=== PATIENT | female | born 1955 | race Caucasian/White ===

== ENCOUNTER 2021-05-05 06:01 | Day surgery (SDC) | payer BC ==
[~2021-05-05] VITALS: Ht 172.7 cm; Wt 40.1 kg
[~2021-05-05 06:01] MED LIST: ALBU2.5V5 NEB; AMLO2.5T5 PO; CHOL5000 PO; DICL20GE TP; FERR325T72 PO; IPRA3AMP29 NEB; IV RINGERS,LACTATED 1000ML 1,000 ML IV SCH; MORPHINE SULFATE 2 MG/ML INJ. IVP PRN; OXYC5CAP PO; OXYC5TAB4 PO; POLY17PO29 PO; PROCHLORPERAZINE 10 MG/2 ML VIAL. IVP PRN; TETR15DR73 OU; THIA100T22 PO; UMEC62.5 IH; ceFAZolin SODIUM IV Push 1 GM VIAL. IVP PRN; fentaNYL PF VIAL 100 MCG/2 ML VIAL IVP PRN
[2021-05-05 06:43] VITALS: BP 130/72
[2021-05-05] MEDS ORDERED: PROPOFOL 10 MG/ML (20ML) VIAL. IV ONE (06:55)
[2021-05-05] MEDS ORDERED: ROCURONIUM 100 MG/10 ML VIAL. ONE (06:55)
[2021-05-05] MEDS ORDERED: GLYCOPYRROLATE 1 MG/5 ML VIAL. ONE (06:55)
[2021-05-05] MEDS ORDERED: DEXAMETHASONE SOD PHOS 4 MG/ML VIAL ONE (06:57)
[2021-05-05] MEDS ORDERED: SUCCINYLCHOLINE 200 MG/10 ML VIAL. ONE (06:57)
[2021-05-05] MEDS ORDERED: ONDANSETRON PF 4 MG/2 ML VIAL. ONE (06:57)
[2021-05-05] MEDS ORDERED: fentaNYL PF VIAL 100 MCG/2 ML VIAL ONE ×3 (06:58→09:47)
[2021-05-05 06:59] LABS: HEMATOCRIT 26.8 % (36.0-47.0); HEMOGLOBIN 8.8 g/dL (12.0-15.5)
[2021-05-05] MEDS ORDERED: CLINDAMYCIN 900MG PREMIX 50 ML IV ONE (07:21)
--- NOTE | 2021-05-05 07:24 | SNU/HH DC ---
DISCHARGE ORDERS DISCHARGE INFORMATION: DISCHARGE DATE: May 05, 2021 FINAL DIAGNOSIS Left olecranon fracture CONDITION ON DISCHARGE: Stable CODE STATUS: Code Status: Full HALFWAY: SNF STAY <30 DAYS: Yes HOSPICE: HOSPICE: No HOSPICE EVAL & TREAT: No LTAC: ADMIT TO LTAC: No POST DISCHARGE ORDERS: ACTIVITY ORDERS: Resume previous activity, Other, see below WEIGHT BEARING STATUS: As tolerated, Touch down weight bearing BATHING ORDERS: Shower-keep dressing dry DIET AFTER DISCHARGE: Regular WOUND/INCISION CARE: Ice to area for comfort, Keep wound/cast CDI OTHER WOUND INSTRUCTIONS: Okay to remove splint on left arm on 05/12/2021 OTHER ORDERS: Okay to use left upper extremity for light ADLs CHECKS AFTER DISCHARGE: CHECKS AFTER DISCHARGE: Check blood press - daily, Check your Temp as needed FOLLOW-UP: PHYSICIAN FOLLOW-UP: [place] in 2 wks TREATMENT/EQUIPMENT ORDERS: ADAPTIVE EQUIPMENT NEEDED: None, [facility] For: Evalulation/Treatment Occupational Therapy For: Evaluation/Treatment DISCHARGE MEDICATIONS: Home Meds Active Scripts Thiamine Mononitrate (VITAMIN B-1) 100 Mg Tablet, 100 MG PO DAILY for deficiency for 60 Days, #60 TAB Prov:MARCEL SOW MD 04/27/21 Oxycodone Hcl (OXYCODONE HCL IMMED.RELEASE ) 5 Mg Tablet, 10 MG PO PRN Q4HRS PRN for MILD PAIN, 1ST CHOICE for 30 Days, #30 TAB Prov:MARCEL SOW MD 04/27/21 Ferrous Sulfate (FEOSOL) 325 Mg Tablet, 325 MG PO DAILYWBKFT for glendy for 60 Days, #60 TAB Prov:MARCEL SOW MD 04/27/21 Reported Medications Amlodipine Besylate (AMLODIPINE BESYLATE) 2.5 Mg Tablet, 2.5 MG PO DAILY for BP CONTROL, TAB 05/04/21 Tetrahydrozoline Hcl (EYE DROPS) 15 Ml Drops, 1 DROP OU PRN DAILY PRN for DRY EYE, DROP 05/04/21 Diclofenac Sodium (Voltaren Arthritis Pain) 20 Gm Gel..gram., 20 GM TP PRN TID PRN for KNEE PAIN, EACH 05/04/21 Cholecalciferol (Vitamin D3) (Vitamin D3 ) 125 Mcg Capsule, 125 MCG PO DAILY for SUPPLEMENT, CAP 5,000 UNITS = 125 MCG 05/04/21 Albuterol Sulfate (ALBUTEROL SULFATE NEB SOLN) 2.5 Mg/3 Ml Vial.neb, 2.5 MG NEB QID for COPD, EACH 0 Refills 05/04/21 Umeclidinium Pierce (Incruse Ellipta) 62.5 Mcg Blst.w.dev, 62.5 MCG IH DAILY for COPD 05/04/21 Polyethylene Glycol 3350 (MIRALAX) 17 Gm Powd.pack, 1 PKT PO DAILY for PREVENT CONSTIPATION, PKT 05/04/21 Oxycodone Hcl (OXYCODONE HCL) 5 Mg Capsule, 5 MG PO PRN Q6HRS PRN for PAIN, TAB 0 Refills 05/04/21 JUMANA TEE II, MD May 05, 2021 07:24
[2021-05-05] MEDS: fentaNYL PF VIAL 100 MCG/2 ML VIAL IVP PRN ×4 (07:28→09:49)
--- NOTE | 2021-05-05 07:28 | PDOC4 ---
Operative Note Operative Note Date of procedure: 05/05/2021 Surgeon: JuanA Tee Piping Designer: Anoop Galindo Preoperative diagnosis: Nondisplaced transverse closed left olecranon fracture Postoperative diagnosis: Same Procedure performed: Open reduction internal fixation left olecranon fracture Anesthesia: General Findings: Acute fracture Tourniquet time: less than 60min Blood loss: 10ml Complications: none Components inserted: [employer] locking olecranon plate Reason for procedure: Patient is a 65-year-old female who had seen initially in consultation, please refer to her prior hospitalization for further details. She was here today after we were able to coordinate with her facility for operative fixation of her left olecranon fracture. I had a discussion of the rationale, risks benefits and alternatives with the patient and she elected to proceed. Description of procedure: Patient was greeted in the preoperative area by myself or the correct extremity was verified and marked. She was taken to the operative suite and antibiotics were started as she was brought back. Once in the operating room, she underwent successful induction of a general anesthetic once she was transferred gently onto the operating room table. She was secured to the bed with all pressure points padded in a lateral decubitus position with the left side up. We began the procedure by removing the prior dressings and marta from her left fractured left leg fracture surgery. The sites appeared well-healed. After this, I took down the splint at her left upper extremity and performed a chlorhexidine prescrub. We then proceeded to prep and drape in the usual sterile fashion and conducted our standard preoperative timeout. I then applied a sterile tourniquet to her left upper arm and exsanguinated the extremity with an Esmarch and insufflated tourniquet to 250 mmHg. I then began the procedure by palpating for bony landmarks and drying line for my planned incision. I then incised skin with a scalpel and dissected subcutaneous tissue with electrocautery. Identified the fracture site, very little hematoma, it was debrided. I then dissected periosteum off of the proximal olecranon taking care to preserve the triceps tendon attachments. I then placed my plate against bone and secured it with 2 K wires and checked biplanar fluoroscopy him images and was happy with the reduction and hardware position. I then placed a nonlocking 3 5 screw to secure the plate to the bone followed by placing 2 7 locking screws proximal to the fracture site and adding a another 3 5 locking screw distal to the fracture site. I then checked my images and was happy with hardware position and fracture reduction. The operative field was then thoroughly irrigated. Hemostasis was ensured tourniquet was let down. I then closed periosteum over the plate with 2-0 Vicryl in a [id number] fashion. Inverted interrupted 2-0 Vicryl was used for subcutaneous tissue and running 3-0 Monocryl for skin in a buried subcuticular fashion. Local anesthetic was injected into the subcutaneous tissue around the periincisional area. The arm was cleansed and dried and a sterile dressing was applied followed by a well- padded posterior splint. She tolerated surgery well. No complications. All counts correct x2 prior to wound closure. At the inclusion, she was laid supine and transferred gently supine to the hospital bed and taken to PACU in stable and extubated condition. Postoperative plan is to discharge her back to her facility. I will see her back in 2 weeks. JUAN A TEE II, MD May 05, 2021 07:28
[2021-05-05] MEDS ORDERED: LIDOCAINE 1% PF 30 ML VIAL. ONE (08:04)
[2021-05-05] MEDS ORDERED: BUPIVACAINE MPF 0.5% 30 ML VIAL. ONE (08:04)
[2021-05-05] MEDS ORDERED: NEOSTIGMINE METHYLSULFATE 5 MG/5 ML SYRINGE. ONE (08:05)
[2021-05-05] MEDS ORDERED: oxyCODONE IR 5 MG TABLET PO ONE (09:30)
[2021-05-05 09:49] VITALS: BP 163/67
[2021-05-05] MEDS ORDERED: SEVOFLURANE 31 TO 60 MINUTES. IH ONE (10:26)
[2021-05-06] MEDS ORDERED: CLINDAMYCIN 900MG PREMIX 50 ML IV PRN (06:00)
== END 2021-05-05 10:47 | disposition home or self-care (01) ==
LOC: SURG 06:01
PROVIDERS: ATTEND Orthopaedic Surgery Sports Medicine
DX: S52.022A Displaced fracture of olecranon process without intraarticular extension of left ulna, initial encounter for closed fracture (principal); I10 Essential (primary) hypertension; J44.9 Chronic obstructive pulmonary disease, unspecified; M81.0 Age-related osteoporosis without current pathological fracture; F17.210 Nicotine dependence, cigarettes, uncomplicated; Z90.710 Acquired absence of both cervix and uterus; Z98.890 Other specified postprocedural states; Z79.899 Other long term (current) drug therapy; Z72.89 Other problems related to lifestyle; Z88.0 Allergy status to penicillin; Z88.1 Allergy status to other antibiotic agents; Z88.2 Allergy status to sulfonamides; Z88.5 Allergy status to narcotic agent; Z88.8 Allergy status to other drugs, medicaments and biological substances; Z20.822 Contact with and (suspected) exposure to COVID-19; X58.XXXA Exposure to other specified factors, initial encounter; Y93.89 Activity, other specified; Y92.89 Other specified places as the place of occurrence of the external cause; Y99.8 Other external cause status
CPT/HCPCS: 24685; 85014; 85018; 87426; A4565; A4930; A6253; A6402; C1713; J0330; J1100; J2405; J2704; J2710; J3010; J3490; 76000; A4452; A6455; J0690

== ENCOUNTER 2021-05-21 06:03 | Inpatient (IN) | payer BC ==
[~2021-05-21] VITALS: Ht 172.7 cm; Wt 40.1 kg
[~2021-05-21 06:03] MED LIST changes: +HYDROmorphone 2 MG/ML INJ. IVP PRN; -MORPHINE SULFATE 2 MG/ML INJ. IVP PRN; -ceFAZolin SODIUM IV Push 1 GM VIAL. IVP PRN
[2021-05-21 06:29] VITALS: BP 134/91
[2021-05-21] MEDS ORDERED: NEOSTIGMINE METHYLSULFATE 5 MG/5 ML SYRINGE. ONE (06:51)
[2021-05-21] MEDS ORDERED: ONDANSETRON PF 4 MG/2 ML VIAL. ONE (06:51)
[2021-05-21] MEDS ORDERED: DEXAMETHASONE SOD PHOS 4 MG/ML VIAL ONE (06:51)
[2021-05-21] MEDS ORDERED: ROCURONIUM 50 MG/5 ML VIAL. ONE (06:51)
[2021-05-21] MEDS ORDERED: MIDAZOLAM HCL/PF 2 MG/2 ML VIAL. ONE (06:51)
[2021-05-21] MEDS ORDERED: fentaNYL PF VIAL 100 MCG/2 ML VIAL ONE ×2 (06:51→08:52)
[2021-05-21] MEDS ORDERED: LIDOCAINE 2% PF 5 ML VIAL. ONE (06:51)
[2021-05-21] MEDS ORDERED: GLYCOPYRROLATE 1 MG/5 ML VIAL. ONE (06:52)
[2021-05-21] MEDS ORDERED: LIDOCAINE 1% PF 30 ML VIAL. ONE (07:09)
[2021-05-21] MEDS ORDERED: BUPIVACAINE MPF 0.5% 30 ML VIAL. ONE (07:09)
[2021-05-21] MEDS ORDERED: ePHEDrine PF IN SALINE 50 MG/10 ML SYRINGE. IV ONE (07:45)
[2021-05-21] MEDS ORDERED: VANCOMYCIN 1GM IVPB FOR OMNI 250 ML IV PRN (07:45)
[2021-05-21] MEDS ORDERED: VANCOMYCIN 1 GM VIAL. ONE (07:55)
--- NOTE | 2021-05-21 08:16 | PDOC4 ---
Operative Note Operative Note Date of procedure: 05/21/2021 Surgeon: Juan A Tee [employer] Technician: Anoop Galindo Preoperative diagnosis: Left elbow wound dehiscence, infection Postoperative diagnosis: Same Procedure performed: irrigation debridement down to bone, excisional Anesthesia: General Findings: Small amount of necrotic debris at the base of the incision, no gross purulence Specimens: Tissue was sent for culture, swabs were taken as well Blood loss: 20 mL Tourniquet time: None used Reason for procedure: Patient is a very pleasant 65-year-old female who I had seen yesterday my outpatient clinic, for her 2-week follow-up after ORIF left olecranon fracture. She had a wound dehiscence after we took the splint down. I discussed the risks, benefits, alternatives and rationale to the above surgery as well as readmission for IV antibiotics and cultures. She wished to proceed. Description of procedure: Patient was greeted in the preoperative area by myself or the correct time was verified and marked. Is taken to the op suite antibiotics were started as she was brought back. Once in the operating room, she was transferred gently supine to the operating table and secured to the bed in the lateral decubitus position with all down pressure points padded after successful induction of a general anesthetic. Antibiotics were held until tissue samples were obtained. We then proceeded prep and drape left upper extremity our usual sterile fashion and conducted a standard preoperative timeout. I then began the procedure by extending the incision proximally and distally about 1 to 2 cm. I then used a rongeur to debride the unhealthy appearing tissue at the wound edges and at the base of the wound. I then used a curette medially and laterally to the plate as well. Swabs were taken as well. After working thoroughly to debride all unhealthy appearing tissue, the wound was irrigated out with a couple 1000 mL of sterile fluid. I then inspected the wound again, there were a couple bleeders that were controlled with electrocautery. I then debrided a little bit more tissue and then continued my irrigation for using a total of 3000 mL. After this the deep layers were closed with inverted interrupted 2-0 PDS followed by three 2-0 nylon in a mattress fashion. Prior to wound closure, all counts correct x2. No complications. At the inclusion, the arm was cleansed and dried and a soft bulky dressing was applied after an incisional wound VAC. Patient tolerated surgery well. At the conclusion, she was awake from anesthesia laid supine and transferred gently supine to the hospital bed and taken to PACU in stable and extubated condition. Postoperative plan is to admit her to the floor. I will asked the hospitalist to assist with her care. I have consulted infectious disease. Given the acuity of her infection, I did discuss with the patient that leaving the hardware in would probably be most appropriate at this point to try to let the fracture heal. JUAN A TEE II, MD May 21, 2021 08:16
[2021-05-21] MEDS ORDERED: MORPHINE SULFATE 2 MG/ML INJ. ONE (08:53)
[2021-05-21] MEDS ORDERED: PROCHLORPERAZINE 10 MG/2 ML VIAL. ONE (08:53)
[2021-05-21] MEDS: fentaNYL PF VIAL 100 MCG/2 ML VIAL IVP PRN ×2 (09:01→10:17)
[2021-05-21] MEDS: MORPHINE SULFATE 2 MG/ML INJ. IVP PRN ×3 (11:53→15:38)
[2021-05-21] MEDS: VANCOMYCIN PER PHARMACY MC PRN (13:58)
--- NOTE | 2021-05-21 13:59 | NUR ---
Pharmacy Vancomycin Dosing Note S:Consulted to monitor and dose vancomycin started 05/21/21. O:GÉNESIS HARRIS is a 65 year old F with Cellulitis . Height: 5 feet, 8 inches Weight: 40.1 kg Banks Body Weight: 63.90 Adjusted Body Weight: 54.38 Dosing Weight: Actual Other Antibiotics: LABS: Last BUN: Last Creatinine: 0.8 Creatinine Clearance: 91 mL/min Last WBC: Last Procalcitonin: Tmax (past 24 hours): 98.8 Microbiology: I/O: Drug Levels: Last level: on at Last dose given 05/21/21 at 0800 Vancomycin Dosing: Loading Dose: 1000 mg x1 Dosing Weight: Actual Target Trough: 10-20 A: Based on: WEIGHT AND RENAL FUNCTION, VANCOMYCIN 1GM IV GIVEN PRIOR TO SURGERY, P: 1. Continue WITH Vancomycin 500 mg IV q12h 2. Follow up Trough level on 05/22/21 at 1930 3. Pharmacy will continue to monitor, follow and adjust therapy as needed. ISSA RE[facility], 05/21/21 [id number]
[2021-05-21] MEDS: ENOXAPARIN 40 MG/0.4 ML SYRINGE. SQ SCH (14:00)
[2021-05-21] MEDS ORDERED: ALBUTEROL SULFATE 2.5 MG/3 ML NEBU. NEB PRN (14:00)
[2021-05-21] MEDS ORDERED: ACETAMINOPHEN 325 MG TABLET. PO PRN (14:00)
[2021-05-21] MEDS ORDERED: ONDANSETRON PF 4 MG/2 ML VIAL. IVP PRN (14:00)
--- NOTE | 2021-05-21 14:02 | PDOC1 ---
History and Physical Date of Admission Date of Admission DATE: 05/21/21 TIME: 13:54 Identification/Chief Complaint Chief Complaint Left elbow wound Source Source: Caregiver, Chart review, Patient History of Present Illness History of Present Illness is a 65yo female with PMHx ETOH use disorder and recent left hip fracture corrected 04/18/2021 who also had non-displaced left olecranon fracture s/p ORIF with plate on 04/16/2021 who returns to the hospital for surgical debridement of left elbow after wound dehiscence while in rehab. She went to the OR for I&D of left elbow with irrigation cultures obtained i ntraoperatively and wound VAC placed hardware remains in place. Seen in PACU says her pain is reasonably controlled she is worried about eating as she is left-handed. [Previously she was treated for left subtrochanteric femur fracture with nelson and unfortunately had a proximal fracture displacement, had prolonged stay due to concerns for possible initial alcohol withdrawal versus anesthesia recovery, was initially notably intoxicated] Past Medical History Pulmonary: COPD Past Surgical History Past Surgical History: Other (Left femur fracture nelson 04/18/2021, left elbow fracture plate 05/05/2021) Family History Family History: Heart Disease Social History ALCOHOL: heavy Current Medications Current Medications Current Medications Fentanyl Citrate (Fentanyl 2ml Vial) 25 mcg PRN Q5MIN PRN IVP MILD PAIN 1-3; Start 05/21/21 at 06:00; Stop 05/22/21 at 05:59 Fentanyl Citrate (Fentanyl 2ml Vial) 50 mcg PRN Q5MIN PRN IVP MODERATE PAIN 4-6 Last administered on 05/21/21at 10:17; Start 05/21/21 at 06:00; Stop 05/22/21 at 05:59 Morphine Sulfate (Morphine Sulfate) 1 mg PRN Q10MIN PRN IVP SEVERE PAIN 7-10 Last administered on 05/21/21at 12:42; Start 05/21/21 at 06:00; Stop 05/22/21 at 05:59 Ringer's Solution 1,000 ml @ 30 mls/hr Q24H IV Last administered on 05/21/21at 06:38; Start 05/21/21 at 06:00; Stop 05/21/21 at 17:59 Hydromorphone HCl (Dilaudid) 0.5 mg PRN Q10MIN PRN IVP SEVERE PAIN 7-10, 2nd CHOICE; Start 05/21/21 at 06:00; Stop 05/22/21 at 05:59 Prochlorperazine Edisylate (Compazine) 5 mg PACU PRN PRN IVP NAUSEA, MRX1; Start 05/21/21 at 06:00; Stop 05/22/21 at 05:59 Lidocaine HCl (Lidocaine Pf 2% Vial) 5 ml STK-MED ONCE .ROUTE ; Start 05/21/21 at 06:51; Stop 05/21/21 at 06:51; Status DC Ondansetron HCl (Zofran) 4 mg STK-MED ONCE .ROUTE ; Start 05/21/21 at 06:51; Stop 05/21/21 at 06:51; Status DC Dexamethasone Sodium Phosphate (Decadron) 4 mg STK-MED ONCE .ROUTE ; Start 05/21/21 at 06:51; Stop 05/21/21 at 06:51; Status DC Rocuronium [place] (Zemuron) 50 mg STK-MED ONCE .ROUTE ; Start 05/21/21 at 06:51; Stop 05/21/21 at 06:51; Status DC Fentanyl Citrate (Fentanyl 2ml Vial) 100 mcg STK-MED ONCE .ROUTE ; Start 05/21/21 at 06:51; Stop 05/21/21 at 06:51; Status DC Neostigmine [place] (Neostigmine Methylsulfate) 5 mg STK-MED ONCE .ROUTE ; Start 05/21/21 at 06:51; Stop 05/21/21 at 06:52; Status DC Midazolam HCl (Versed) 2 mg STK-MED ONCE .ROUTE ; Start 05/21/21 at 06:51; Stop 05/21/21 at 06:52; Status DC Glycopyrrolate (Robinul) 1 mg STK-MED ONCE .ROUTE ; Start 05/21/21 at 06:52; Stop 05/21/21 at 06:52; Status DC Lidocaine HCl (Xylocaine 1% Pf 30ml Vial) 30 ml STK-MED ONCE .ROUTE ; Start 05/21/21 at 07:09; Stop 05/21/21 at 07:09; Status DC Bupivacaine HCl (Sensorcaine Mpf 0.5%) 30 ml STK-MED ONCE .ROUTE ; Start 05/21/21 at 07:09; Stop 05/21/21 at 07:10; Status DC Vancomycin HCl (Vanco Per Pharmacy) 1 each PRN DAILY PRN MC SEE COMMENTS; Start 05/21/21 at 07:45 Vancomycin HCl 250 ml @ 250 mls/hr 1X PREOP PRN IV PRIOR TO PROCEDURE; Start 05/21/21 at 07:45; Stop 05/22/21 at 07:44 Ephedrine Sulfate (ePHEDrine PF IN SALINE SYRINGE) 50 mg STK-MED ONCE IV ; Start 05/21/21 at 07:45; Stop 05/21/21 at 07:45; Status DC Vancomycin HCl (Vancomycin) 1 gm STK-MED ONCE .ROUTE ; Start 05/21/21 at 07:55; Stop 05/21/21 at 07:56; Status DC Fentanyl Citrate (Fentanyl 2ml Vial) 100 mcg STK-MED ONCE .ROUTE ; Start 05/21/21 at 08:52; Stop 05/21/21 at 08:53; Status DC Morphine Sulfate (Morphine Sulfate) 2 mg STK-MED ONCE .ROUTE ; Start 05/21/21 at 08:53; Stop 05/21/21 at 08:53; Status DC Prochlorperazine Edisylate (Compazine) 10 mg STK-MED ONCE .ROUTE ; Start 05/21/21 at 08:53; Stop 05/21/21 at 08:53; Status DC Vancomycin HCl 500 mg/Sodium Chloride 100 ml @ 100 mls/hr Q12H IV ; Start 05/21/21 at 20:00 Vancomycin HCl (Vancomycin Trough Level) 1 each 1X ONCE MC ; Start 05/22/21 at 19:30; Stop 05/22/21 at 19:31 Active Scripts Active Vitamin B-1 (Thiamine Mononitrate) 100 Mg Tablet 100 Mg PO DAILY 60 Days Feosol (Ferrous Sulfate) 325 Mg Tablet 325 Mg PO DAILYWBKFT 60 Days Reported Vitamin D3 (Vitamin D) 125 Mcg Capsule 125 Mcg PO DAILY 5,000 UNITS = 125 MCG Albuterol Sulfate Neb Soln (Albuterol Sulfate) 2.5 Mg/3 Ml Vial.neb 2.5 Mg NEB QID Oxycodone Hcl 5 Mg Capsule 5 Mg PO PRN Q6HRS PRN Allergies Allergies: Coded Allergies: Penicillins (Verified Allergy, Intermediate, 05/05/21) Sulfa (Sulfonamide Antibiotics) (Verified Allergy, Intermediate, 05/05/21) ampicillin (Verified Allergy, Intermediate, 05/05/21) codeine (Verified Allergy, Intermediate, 05/05/21) Received Morphine on previous admission hydrocodone (Verified Allergy, Intermediate, Unknown, 05/05/21) meperidine (Verified Allergy, Intermediate, 05/05/21) Received fentanyl on previous admission. propoxyphene (Verified Allergy, Intermediate, 05/05/21) Uncoded Allergies: Garcia Peppers (Allergy, Intermediate, Hives, 05/21/21) Hives and severe itching ROS General: No: Chills, Night Sweats, Fatigue, Malaise, Appetite, Other PSYCHOLOGICAL ROS: No: Anxiety, Behavioral Disorder, Concentration difficultie, Decreased libido, Depression, Disorientation, Hallucinations, Hostility, Irritablity, Memory difficulties, Mood Swings, Obsessive thoughts, Physical abuse, Sexual abuse, Sleep disturbances, Suicidal ideation, Other Eyes: No Blurry vision, No Decreased vision, No Double vision, No Dry eyes, No Excessive tearing, No Eye Pain, No Itchy Eyes, No Loss of vision, No Photophobia, No Scotomata, No Uses contacts, No Uses glasses, No Other HEENT: No: Heacaches, Visual Changes, Hearing change, Nasal congestion, Nasal discharge, Oral lesions, Sinus pain, Sore Throat, Epistaxis, Sneezing, Snoring, Tinnitus, Vertigo, Vocal changes, Other ALLERGY AND IMMUNOLOGY: No: Hives, Insect Bite Sensitivity, Itchy/Watery Eyes, Nasal Congestion, Post Nasal Drip, Seasonal Allergies, Other Hematological and Lymphatic: No: Bleeding Problems, Blood Clots, Blood Transfusions, Brusing, Night Sweats, Pallor, Swollen Lymph Nodes, Other ENDOCRINE: No: Breast Changes, Galactorrhea, Hair Pattern Changes, Hot Flashes, Malaise/lethargy, Mood Swings, Palpitations, Polydipsia/polyuria, Skin Changes, Temperature Intolerance, Unexpected Weight Changes, Other Breast: No New/Changing Breast Lumps, No Nipple changes, No Nipple discharge, No Other Respiratory: No: Cough, Hemoptysis, Orthopnea, Pleuritic Pain, Shortness of breath, SOB with excertion, Sputum Changes, Stridor, Tachypnea, Wheezing, Other Cardiovascular: No Chest Pain, No Palpitations, No Orthopnea, No Paroxysmal Noc. Dyspnea, No Edema, No Lt Headedness, No Other Gastrointestinal: No Nausea, No Vomiting, No Abdominal Pain, No Diarrhea, No Constipation, No Melena, No Hematochezia, No Other Genitourinary: No Dysuria, No Frequency, No Incontinence, No Hematuria, No Retention, No Discharge, No Urgency, No Pain, No Flank Pain, No Other, No , No , No , No , No , No , No Musculoskeletal: Yes Gait Disturbance, Yes Muscle Pain, Yes Muscular Weakness; No Joint Pain, No Joint Stiffness, No Joint Swelling, No Pain In:, No Swelling In:, No Other Neurological: No Behavorial Changes, No Bowel/Bladder ControlChng, No Confusion, No Dizziness, No Gait Disturbance, No Headaches, No Impaired Coord/balance, No Memory Loss, No Numbness/Tingling, No Seizures, No Speech Problems, No Tremors, No Visual Changes, No Weakness, No Other Skin: No Dry Skin, No Eczema, No Hair Changes, No Lumps, No Mole Changes, No Mottling, No Nail Changes, No Pruritus, No Rash, No Skin Lesion Changes, No Other, No Acne Physical Exam General: Alert, Oriented X3, Cooperative, mild distress HEENT: Atraumatic, PERRLA, EOMI, Mucous membr. moist/pink Lungs: Clear to auscultation, Normal air movement Heart: S1S2, RRR, no thrills, no rubs, no gallops, no murmurs Abdomen: Normal bowel sounds, Soft, No tenderness, No hepatosplenomegaly, No masses Rectal Exam: not examined Extremities: No clubbing, No cyanosis, No edema, Normal pulses, Other (left elbow compressive wrap) Skin: Other (left elbow compressive wrap) Neuro: Normal gait, Normal speech, Strength at 5/5 X4 ext, Normal tone, Sen sation intact, Cranial nerves 3-12 NL, Reflexes 2+ Psych/Mental Status: Mental status NL, Mood NL Vitals Vitals Vital Signs Date Time Temp Pulse Resp B/P (MAP) Pulse Ox O2 Delivery O2 Flow Rate FiO2 05/21/21 12:42 20 99 Room Air 05/21/21 12:40 98.8 82 132/76 98.8 05/21/21 09:01 8.0 VTE Prophylaxis Ordered VTE Prophylaxis Devices: Yes VTE Pharmacological Prophylaxi: Yes Assessment/Plan Assessment/Plan A/P: Left elbow wound - s/p I&D and wound vac placement. Cultures intraoperatively. ID consulted for antibiotics Left subtrochanteric femur fracture - mid femur fracture s/p 04/18/2021 correction Nondisplaced left olecranon fracture - s/p plate 05/05/2021, still in place Weaknesss, debilty, frail EtOH abuse disorder Malnutrition, BMI 16 FEN - regular diet PPX - lovenox FULL CODE Dispo - inpatient Justifications for Admission Other Justification MARCEL KNAPP MD May 21, 2021 14:02
[2021-05-21 14:36] VITALS: BP 118/64
[2021-05-21] MEDS ORDERED: fentaNYL PF VIAL 100 MCG/2 ML VIAL IVP PRN (18:45)
[2021-05-21] MEDS ORDERED: NICOTINE 21MG PATCH. TD PRN (18:45)
[2021-05-21 19:10] VITALS: BP 119/63
[2021-05-21] MEDS: VANCOMYCIN 500 MG in IV NORMAL SALINE 100ML 100 ML IV SCH (20:24)
[2021-05-21] MEDS: oxyCODONE IR 5 MG TABLET PO PRN ×2 (20:30→22:47)
[2021-05-21 22:40] VITALS: BP 139/74
[2021-05-22 03:30] VITALS: BP 143/71
[2021-05-22] MEDS: oxyCODONE IR 5 MG TABLET PO PRN ×2 (05:30→12:30)
[2021-05-22 07:00] VITALS: BP 127/81
[2021-05-22] MEDS: FERROUS SULFATE 325 MG TABLET. PO SCH (08:00)
[2021-05-22] MEDS: THIAMINE 100 MG TABLET. PO SCH (08:05)
[2021-05-22] MEDS: CHOLECALCIFEROL (VITAMIN D3) 5,000 UNIT CAPSULE PO SCH (08:05)
[2021-05-22] MEDS: VANCOMYCIN 500 MG in IV NORMAL SALINE 100ML 100 ML IV SCH (08:06)
[2021-05-22 08:23] LABS: HEMATOCRIT 34.2 % (36.0-47.0); HEMOGLOBIN 11.3 g/dL (12.0-15.5); RED BLOOD COUNT 3.81 x10^6/uL (3.50-5.40); RED CELL DISTRIBUTION WIDTH 13.7 % (11.5-14.5); WHITE BLOOD COUNT 8.9 x10^3/uL (4.0-11.0)
--- NOTE | 2021-05-22 09:22 | PDOC ---
ORTHO PROGRESS NOTES DATE: 05/22/21 TIME: 09:21 Subjective Overall, she does not have much pain at her elbow. Denies any nausea or vomiting. She feels good overall and is looking to getting home for football games. Denies any numbness or tingling. Vitals Vital Signs Date Time Temp Pulse Resp B/P (MAP) Pulse Ox O2 Delivery O2 Flow Rate FiO2 05/22/21 07:45 Room Air 05/22/21 07:00 98.0 93 18 127/81 (96) 95 98.0 05/22/21 06:00 8.0 Labs Laboratory Tests Test 05/22/21 07:50 White Blood Count 8.9 x10^3/uL (4.0-11.0) Red Blood Count 3.81 x10^6/uL (3.50-5.40) Hemoglobin 11.3 g/dL (12.0-15.5) Hematocrit 34.2 % (36.0-47.0) Mean Corpuscular Volume 90 fL (79-100) Mean Corpuscular Hemoglobin 30 pg (25-35) Mean Corpuscular Hemoglobin Concent 33 g/dL (31-37) Red Cell Distribution Width 13.7 % (11.5-14.5) Platelet Count 631 x10^3/uL (140-400) Laboratory Tests Test 05/22/21 07:50 White Blood Count 8.9 x10^3/uL (4.0-11.0) Red Blood Count 3.81 x10^6/uL (3.50-5.40) Hemoglobin 11.3 g/dL (12.0-15.5) Hematocrit 34.2 % (36.0-47.0) Mean Corpuscular Volume 90 fL (79-100) Mean Corpuscular Hemoglobin 30 pg (25-35) Mean Corpuscular Hemoglobin Concent 33 g/dL (31-37) Red Cell Distribution Width 13.7 % (11.5-14.5) Platelet Count 631 x10^3/uL (140-400) X-Rays Gram stain demonstrates gram-positive cocci in clusters. Cultures pending Notes She is awake and alert in bed. Ariella is in place. Normal motor and sensation are present in her left upper extremity Assessment and Plan Deep infection left elbow, hardware in place. I discussed my treatment goals in her care with infectious disease. I appreciate hospitalist assistance in the care of this patient. JUMANA TEE II, MD May 22, 2021 09:22
[2021-05-22 09:44] LABS: ALBUMIN 3.2 g/dL (3.4-5.0); CALCIUM 8.8 mg/dL (8.5-10.1); CREATININE 0.5 mg/dL (0.6-1.0); GFR 124.6; POTASSIUM 4.5 mmol/L (3.5-5.1); TOTAL BILIRUBIN 0.2 mg/dL (0.2-1.0); TOTAL PROTEIN 6.3 g/dL (6.4-8.2)
--- NOTE | 2021-05-22 10:11 | NUR ---
SW following. Discussed with RN, pt wanting to discharge home so she can watch the [employer] game tomorrow. Cultures are still pending, tentative IV abx script written, however wound care still needs to determine wound care for home, or whether pt needs to stay. EM will continue to follow.
--- NOTE | 2021-05-22 10:16 | CONS ---
DATE OF CONSULTATION: 05/22/2021 REQUESTING PHYSICIAN: Dr. Rosado. REASON FOR CONSULTATION: Exposed hardware with wound dehiscence. HISTORY OF PRESENT ILLNESS: This is a 65-year-old female who after having a fall undergone left hip fracture on 04/18 and then she had an olecranon fracture and nondisplaced that ORIF with plating done on 05/05. The patient was followed up in the office with Dr. Rosado and noted to have exposed wound dehiscence and exposed hardware. Hence, the patient was taken to the OR yesterday and primary closure was done. There was no gross purulence noted, but the cultures were taken and a consult has been requested. The patient denies any fever or chills, nausea, vomiting, diarrhea, chest pain, shortness of breath, abdominal pain, urinary symptoms or bowel symptoms. PAST MEDICAL HISTORY: Positive for alcoholism. The patient has COPD, hypertension, has had tonsillectomy, adenoidectomy, hysterectomy, breast surgery. SOCIAL HISTORY: She said since her fall and first surgery, she has quit drinking. She does still smoke, no drug use. ALLERGIES: LISTED ALLERGIC TO PENICILLIN AND SULFA. REVIEW OF SYSTEMS: As per the HPI. All other systems reviewed are negative. CURRENT MEDICATIONS: Reviewed. The patient is on vancomycin. REVIEW OF SYSTEMS: As per HPI. All other systems reviewed are negative. PHYSICAL EXAMINATION: GENERAL: Alert, oriented female, not in distress. VITAL SIGNS: Stable, afebrile. HEENT: Both pupils are round and reacting. No conjunctival lesion, no lesion in the mouth. NECK: Supple, no JVP, no lymphadenopathy. LUNGS: Clear. HEART: S1, S2, regular. ABDOMEN: Soft, nontender, no organomegaly. EXTREMITIES: No edema, cyanosis. SKIN: Unremarkable. Post-surgical dressing with a wound VAC on the elbow, not removed. NEUROLOGIC: The patient is alert, awake, and appropriate. No focal neurologic deficit. LABORATORY DATA: White count is 8.9, hemoglobin 11.3, platelets are 631,000. BUN and creatinine is normal. Her ALT, AST is normal. COVID is negative. The intraoperative culture is showing gram-positive cocci and gram stain culture is pending. IMPRESSION: 1. Left elbow fracture, status post ORIF on 05/05, subsequent wound dehiscence with exposed hardware, ORIF again done on 21 of May. 2. Status post fall with a left hip fracture ORIF on April 18. 3. Alcoholism then, but she says she has not had any alcohol since first surgery. 4. Hypertension. 5. Chronic obstructive pulmonary disease. 6. Tobaccoism. 7. Malnutrition. RECOMMENDATIONS: 1. Continue vancomycin and cefepime. Supportive care. Hopefully, discharge medications depending upon the culture, but we will change vancomycin to daptomycin. Thank you very much, Dr. Rosado for giving me opportunity to participate in this patient's care. KALEB DR: Rito TID: [id number]
[2021-05-22] MEDS: CEFEPIME HCL IV Push 1 GM VIAL. IVP SCH ×2 (10:19→19:57)
[2021-05-22 10:50] VITALS: BP 108/68
[2021-05-22] MEDS: MULTIVITAMIN with MINERAL TABLET. PO SCH (11:48)
[2021-05-22] MEDS: ENOXAPARIN 40 MG/0.4 ML SYRINGE. SQ SCH (12:31)
[2021-05-22 15:00] VITALS: BP 109/79
--- NOTE | 2021-05-22 16:06 | PDOC ---
[facility] PROGRESS NOTE Date of Service DOS: DATE: 05/22/21 TIME: 16:04 Chief Complaint Chief Complaint A/P: Left elbow wound - s/p I&D and wound vac placement. Cultures intraoperatively. ID consulted for antibiotics Left subtrochanteric femur fracture - mid femur fracture s/p 04/18/2021 correction Nondisplaced left olecranon fracture - s/p plate 05/05/2021, still in place Weaknesss, debilty, frail EtOH abuse disorder Malnutrition, BMI 16 Hyponatremia - likely nutritional, calorie counting, nutritional supplements. FEN - regular diet PPX - lovenox FULL CODE Dispo - inpatient History of Present Illness History of Present Illness is a 65yo female with PMHx ETOH use disorder and recent left hip fracture corrected 04/18/2021 who also had non-displaced left olecranon fracture s/p ORIF with plate on 04/16/2021 who returns to the hospital for surgical debridement of left elbow after wound dehiscence while in rehab. She went to the OR for I&D of left elbow with irrigation cultures obtained intraoperatively and wound VAC placed hardware remains in place. Seen in PACU says her pain is reasonably controlled she is worried about eating as she is left-handed. [Previously she was treated for left subtrochanteric femur fracture with nelson and unfortunately had a proximal fracture displacement, had prolonged stay due to concerns for possible initial alcohol withdrawal versus anesthesia recovery, was initially notably intoxicated] 05/22: Afebrile. Having some pain in her left elbow and left femur well contro lled. Sodium returned 133. Some weakness. Wound was closed Amsidine returning awaiting cultures. Change daptomycin per ID. Final cultures to guide antibiotic therapy Vitals/I&O Vitals/I&O: Vital Signs Date Time Temp Pulse Resp B/P (MAP) Pulse Ox O2 Delivery O2 Flow Rate FiO2 05/22/21 15:00 98.1 94 18 109/79 (89) 97 Room Air 98.1 05/22/21 06:00 8.0 I & O 05/21/21 05/21/21 05/22/21 15:00 23:00 07:00 Intake Total 2570 ml 400 ml 320 ml Output Total 20 ml Balance 2550 ml 400 ml 320 ml Physical Exam General: Alert, Oriented X3, Cooperative, mild distress Lungs: Clear Abdomen: Normal bowel sounds, Soft, No tenderness, No hepatosplenomegaly, No masses Extremities: No clubbing, No cyanosis, No edema, Normal pulses, Other (left elbow compressive wrap) Skin: Other (left elbow compressive wrap) Labs Labs: Laboratory Tests Test 05/22/21 07:50 White Blood Count 8.9 x10^3/uL (4.0-11.0) Red Blood Count 3.81 x10^6/uL (3.50-5.40) Hemoglobin 11.3 g/dL (12.0-15.5) Hematocrit 34.2 % (36.0-47.0) Mean Corpuscular Volume 90 fL (79-100) Mean Corpuscular Hemoglobin 30 pg (25-35) Mean Corpuscular Hemoglobin Concent 33 g/dL (31-37) Red Cell Distribution Width 13.7 % (11.5-14.5) Platelet Count 631 x10^3/uL (140-400) Sodium Level 133 mmol/L (136-145) Potassium Level 4.5 mmol/L (3.5-5.1) Chloride Level 98 mmol/L (98-107) Carbon Dioxide Level 25 mmol/L (21-32) Anion Gap 10 (6-14) Blood Urea Nitrogen 7 mg/dL (7-20) Creatinine 0.5 mg/dL (0.6-1.0) Estimated GFR (Cockcroft-Gault) 124.6 BUN/Creatinine Ratio 14 (6-20) Glucose Level 95 mg/dL (70-99) Calcium Level 8.8 mg/dL (8.5-10.1) Total Bilirubin 0.2 mg/dL (0.2-1.0) Aspartate Amino Transf (AST/SGOT) 12 U/L (15-37) Alanine Aminotransferase (ALT/SGPT) 14 U/L (14-59) Alkaline Phosphatase 133 U/L (46-116) Total Protein 6.3 g/dL (6.4-8.2) Albumin 3.2 g/dL (3.4-5.0) Albumin/Globulin Ratio 1.0 (1.0-1.7) Comment Review of Relevant I have reviewed the following items guy (where applicable) has been applied. Medications: Current Medications Medications (Trade) Dose Ordered Sig/Yamel Route PRN Reason Start Time Stop Time Status Last Admin Dose Admin Vancomycin HCl 500 mg/Sodium Chloride 100 ml @ 100 mls/hr Q12H IV 05/21/21 20:00 05/22/21 08:06 Vitamin D (Vitamin D3) 5,000 unit DAILY PO 05/22/21 09:00 05/22/21 08:05 Thiamine Mononitrate (Vitamin B-1) 100 mg DAILY PO 05/22/21 09:00 05/22/21 08:05 Oxycodone HCl (Roxicodone) 5 mg PRN Q6HRS PRN PO MODERATE PAIN 4-6 05/21/21 18:45 05/21/21 22:47 Oxycodone HCl (Roxicodone) 10 mg PRN Q6HRS PRN PO SEVERE PAIN 7-10 05/21/21 18:45 05/22/21 12:30 Cefepime HCl (Maxipime) 1 gm Q12HR IVP 05/22/21 09:00 05/22/21 10:19 Multivitamins (Thera M Plus) 1 tab DAILY PO 05/22/21 12:30 05/22/21 11:48 Justifications for Admission Other Justification MARCEL KNAPP MD May 22, 2021 16:06
[2021-05-22] MEDS: POLYETHYLENE GLYCOL 3350 17 GM PACKET. PO SCH (17:30)
[2021-05-22 19:45] VITALS: BP_SYST 125; BP_SYST 157; BP_DIAS 48; BP_DIAS 85
[2021-05-22 20:13] LABS: VANC TR 6.8 mcg/mL (10.0-20.0)
[2021-05-22] MEDS: VANCOMYCIN PER PHARMACY MC PRN ×3 (20:26→20:38)
--- NOTE | 2021-05-22 20:34 | NUR ---
Pharmacy Vancomycin Dosing Note S:Consulted to monitor and dose vancomycin started 05/21/21. O:GÉNESIS HARRIS is a 65 year old F with Cellulitis . Height: 5 feet, 8 inches Weight: 40.1 kg Hiller Body Weight: 63.90 Adjusted Body Weight: 54.38 Dosing Weight: Actual Other Antibiotics: LABS: Last BUN: 7 Last Creatinine: 0.5 Creatinine Clearance: 73 mL/min Last WBC: 8.9 Last Procalcitonin: Tmax (past 24 hours): 98.8 Microbiology: GPC FROM GM STAIN I/O: Drug Levels: Last Trough level: 6.8 on 05/22/21 at 1930 Last dose given 05/21/21 at 0800 Vancomycin Dosing: Loading Dose: 1000 mg x1 Dosing Weight: Actual Target Trough: 10-20 A: Based on: HT WT AND RENAL FXN P: 1. Change Vancomycin 1000 mg IV q12h 2. Follow up Trough level as needed 3. Pharmacy will continue to monitor, follow and adjust therapy as needed. FLORESITA MCKEON, [facility], 05/22/212033
[2021-05-22] MEDS: VANCOMYCIN 1 GM in IV NORMAL SALINE 250ML 250 ML IV SCH (20:50)
[2021-05-22 23:00] VITALS: BP 133/86
[2021-05-23] VITALS (8 sets, daily range): BP systolic 139–158; BP diastolic 56–86
[2021-05-23] MEDS: FERROUS SULFATE 325 MG TABLET. PO SCH (08:00)
[2021-05-23] MEDS: VANCOMYCIN PER PHARMACY MC PRN (08:02)
[2021-05-23 08:11] LABS: HEMATOCRIT 35.5 % (36.0-47.0); HEMOGLOBIN 11.6 g/dL (12.0-15.5); RED BLOOD COUNT 3.96 x10^6/uL (3.50-5.40); RED CELL DISTRIBUTION WIDTH 13.9 % (11.5-14.5); WHITE BLOOD COUNT 6.6 x10^3/uL (4.0-11.0)
[2021-05-23] MEDS: MULTIVITAMIN with MINERAL TABLET. PO SCH (08:30)
[2021-05-23] MEDS: CHOLECALCIFEROL (VITAMIN D3) 5,000 UNIT CAPSULE PO SCH (08:30)
[2021-05-23] MEDS: THIAMINE 100 MG TABLET. PO SCH (08:30)
[2021-05-23] MEDS: CEFEPIME HCL IV Push 1 GM VIAL. IVP SCH ×2 (08:31→21:34)
[2021-05-23] MEDS: POLYETHYLENE GLYCOL 3350 17 GM PACKET. PO SCH (08:31)
[2021-05-23] MEDS: VANCOMYCIN 1 GM in IV NORMAL SALINE 250ML 250 ML IV SCH (08:31)
[2021-05-23] MEDS: LACTOBACILLUS RHAMNOSUS GG 1 CAPSULE. PO SCH ×2 (08:32→21:33)
--- NOTE | 2021-05-23 12:08 | PDOC ---
Infectious Disease Note Subjective Subjective pt is sleepy, no complaints ROS ROS no n/v/d/ Vital Sign Vital Signs Vital Signs Date Time Temp Pulse Resp B/P (MAP) Pulse Ox O2 Delivery O2 Flow Rate FiO2 05/23/21 11:00 97.8 91 18 148/86 (106) 93 Room Air 97.8 Physical Exam PHYSICAL EXAM GENERAL: Alert, oriented female, not in distress. VITAL SIGNS: Stable, afebrile. HEENT: Both pupils are round and reacting. No conjunctival lesion, no lesion in the mouth. NECK: Supple, no JVP, no lymphadenopathy. LUNGS: Clear. HEART: S1, S2, regular. ABDOMEN: Soft, nontender, no organomegaly. EXTREMITIES: No edema, cyanosis. SKIN: Unremarkable. Post-surgical dressing with a wound VAC on the elbow, not removed. NEUROLOGIC: The patient is alert, awake, and appropriate. No focal neurologic deficit. Labs Lab Laboratory Tests Test 05/22/21 19:30 05/23/21 07:25 Vancomycin Level Trough 6.8 mcg/mL (10.0-20.0) Vancomycin Last Dose Date 05/22/21 Vancomycin Last Dose Time 0800 White Blood Count 6.6 x10^3/uL (4.0-11.0) Red Blood Count 3.96 x10^6/uL (3.50-5.40) Hemoglobin 11.6 g/dL (12.0-15.5) Hematocrit 35.5 % (36.0-47.0) Mean Corpuscular Volume 90 fL (79-100) Mean Corpuscular Hemoglobin 29 pg (25-35) Mean Corpuscular Hemoglobin Concent 33 g/dL (31-37) Red Cell Distribution Width 13.9 % (11.5-14.5) Platelet Count 618 x10^3/uL (140-400) Micro Microbiology 05/21/21 Gram Stain - Final, Resulted 05/21/21 Aerobic and Anaerobic Culture - Preliminary, Resulted 05/21/21 Gram Stain - Final, Resulted 05/21/21 Aerobic and Anaerobic Culture - Preliminary, Resulted Objective Assessment IMPRESSION: 1. Left elbow fracture, status post ORIF on 05/05, subsequent wound dehiscence with exposed hardware, ORIF again done on 21 of May. 2. Status post fall with a left hip fracture ORIF on April 18. 3. Alcoholism then, but she says she has not had any alcohol since first surgery. 4. Hypertension. 5. Chronic obstructive pulmonary disease. 6. Tobaccoism. 7. Malnutrition. Plan Plan of Care cont antibiotics cont supportive care culture neg so far SHADE KO MD May 23, 2021 12:08
--- NOTE | 2021-05-23 13:54 | PDOC ---
[facility] PROGRESS NOTE Date of Service DOS: DATE: 05/23/21 TIME: 13:37 Chief Complaint Chief Complaint A/P: Left elbow wound - s/p I&D and wound vac placement. Cultures intraoperatively. ID consulted for antibiotics Left subtrochanteric femur fracture - mid femur fracture s/p 04/18/2021 correction Nondisplaced left olecranon fracture - s/p plate 05/05/2021, still in place Weaknesss, debilty, frail EtOH abuse disorder Malnutrition, BMI 16 Hyponatremia - likely nutritional, calorie counting, nutritional supplements. FEN - regular diet PPX - lovenox FULL CODE Dispo - inpatient History of Present Illness History of Present Illness is a 65yo female with PMHx ETOH use disorder and recent left hip fracture corrected 04/18/2021 who also had non-displaced left olecranon fracture s/p ORIF with plate on 04/16/2021 who returns to the hospital for surgical debridement of left elbow after wound dehiscence while in rehab. She went to the OR for I&D of left elbow with irrigation cultures obtained intraoperatively and wound VAC placed hardware remains in place. Seen in PACU says her pain is reasonably controlled she is worried about eating as she is left-handed. [Previously she was treated for left subtrochanteric femur fracture with nelson and unfortunately had a proximal fracture displacement, had prolonged stay due to concerns for possible initial alcohol withdrawal versus anesthesia recovery, was initially notably intoxicated] 05/22: Afebrile. Having some pain in her left elbow and left femur well contro lled. Sodium returned 133. Some weakness. Wound was closed and awaiting cultures. Change daptomycin per ID. Final cultures to guide antibiotic therapy 05/23: A Gram stain negative. Afebrile. Having left elbow pain did not sleep well. She is strenuously requesting to go home. Advised her to await final cultures will discuss with ID. Vitals/I&O Vitals/I&O: Vital Signs Date Time Temp Pulse Resp B/P (MAP) Pulse Ox O2 Delivery O2 Flow Rate FiO2 05/23/21 11:00 97.8 91 18 148/86 (106) 93 Room Air 97.8 I & O 05/22/21 05/22/21 05/23/21 15:00 23:00 07:00 Intake Total 300 ml Output Total 2000 ml Balance -2000 ml 300 ml Physical Exam General: Alert, Oriented X3, Cooperative, mild distress Lungs: Clear Abdomen: Normal bowel sounds, Soft, No tenderness, No hepatosplenomegaly, No masses Extremities: No clubbing, No cyanosis, No edema, Normal pulses, Other (left elbow compressive wrap) Skin: Other (left elbow compressive wrap) Labs Labs: Laboratory Tests Test 05/22/21 19:30 05/23/21 07:25 Vancomycin Level Trough 6.8 mcg/mL (10.0-20.0) Vancomycin Last Dose Date 05/22/21 Vancomycin Last Dose Time 0800 White Blood Count 6.6 x10^3/uL (4.0-11.0) Red Blood Count 3.96 x10^6/uL (3.50-5.40) Hemoglobin 11.6 g/dL (12.0-15.5) Hematocrit 35.5 % (36.0-47.0) Mean Corpuscular Volume 90 fL (79-100) Mean Corpuscular Hemoglobin 29 pg (25-35) Mean Corpuscular Hemoglobin Concent 33 g/dL (31-37) Red Cell Distribution Width 13.9 % (11.5-14.5) Platelet Count 618 x10^3/uL (140-400) Comment Review of Relevant I have reviewed the following items guy (where applicable) has been applied. Medications: Current Medications Medications (Trade) Dose Ordered Sig/Yamel Route PRN Reason Start Time Stop Time Status Last Admin Dose Admin Polyethylene Glycol (miraLAX PACKET) 17 gm DAILY PO 05/22/21 17:30 05/23/21 08:31 Vancomycin HCl 1 gm/Sodium Chloride 250 ml @ 250 mls/hr Q12H IV 05/22/21 20:30 05/23/21 10:00 DC 05/23/21 08:31 Justifications for Admission Other Justification MARCEL KNAPP MD May 23, 2021 13:54
[2021-05-23] MEDS: ENOXAPARIN 40 MG/0.4 ML SYRINGE. SQ SCH (14:00)
[2021-05-23] MEDS: NORMAL SALINE IV SCH (14:59)
[2021-05-23] MEDS: DAPTOMYCIN IV SCH (14:59)
[2021-05-23] MEDS ORDERED: VANCOMYCIN 1 GM in IV NORMAL SALINE 250ML 250 ML IV SCH (20:30)
[2021-05-24] MEDS: oxyCODONE IR 5 MG TABLET PO PRN ×3 (01:57→16:06)
[2021-05-24 03:00] VITALS: BP 141/70
[2021-05-24 07:00] VITALS: BP 152/80
[2021-05-24] MEDS: POLYETHYLENE GLYCOL 3350 17 GM PACKET. PO SCH (07:19)
[2021-05-24] MEDS: FERROUS SULFATE 325 MG TABLET. PO SCH (08:00)
[2021-05-24] MEDS: CHOLECALCIFEROL (VITAMIN D3) 5,000 UNIT CAPSULE PO SCH (08:18)
[2021-05-24] MEDS: LACTOBACILLUS RHAMNOSUS GG 1 CAPSULE. PO SCH ×2 (08:18→21:13)
[2021-05-24] MEDS: MULTIVITAMIN with MINERAL TABLET. PO SCH (08:18)
[2021-05-24] MEDS: CEFEPIME HCL IV Push 1 GM VIAL. IVP SCH ×2 (08:18→21:13)
[2021-05-24] MEDS: THIAMINE 100 MG TABLET. PO SCH (08:18)
[2021-05-24 08:45] LABS: HEMATOCRIT 34.9 % (36.0-47.0); HEMOGLOBIN 11.4 g/dL (12.0-15.5); RED BLOOD COUNT 3.87 x10^6/uL (3.50-5.40); RED CELL DISTRIBUTION WIDTH 13.8 % (11.5-14.5); WHITE BLOOD COUNT 4.7 x10^3/uL (4.0-11.0)
[2021-05-24 08:54] LABS: CREATININE 0.3 mg/dL (0.6-1.0); GFR 224.7; POTASSIUM 4.3 mmol/L (3.5-5.1)
[2021-05-24 11:00] VITALS: BP 149/79
--- NOTE | 2021-05-24 13:42 | PDOC ---
[facility] PROGRESS NOTE Date of Service DOS: DATE: 05/24/21 TIME: 13:33 Chief Complaint Chief Complaint A/P: Left elbow wound - s/p I&D and wound vac placement. Cultures intraoperatively. ID consulted for antibiotics Left subtrochanteric femur fracture - mid femur fracture s/p 04/18/2021 correction Nondisplaced left olecranon fracture - s/p plate 05/05/2021, still in place Weaknesss, debilty, frail EtOH abuse disorder Malnutrition, BMI 16 Hyponatremia - likely nutritional, calorie counting, nutritional supplements. FEN - regular diet PPX - lovenox FULL CODE Dispo - inpatient History of Present Illness History of Present Illness is a 65yo female with PMHx ETOH use disorder and recent left hip fracture corrected 04/18/2021 who also had non-displaced left olecranon fracture s/p ORIF with plate on 04/16/2021 who returns to the hospital for surgical debridement of left elbow after wound dehiscence while in rehab. She went to the OR for I&D of left elbow with irrigation cultures obtained intraoperatively and wound VAC placed hardware remains in place. Seen in PACU says her pain is reasonably controlled she is worried about eating as she is left-handed. [Previously she was treated for left subtrochanteric femur fracture with nelson and unfortunately had a proximal fracture displacement, had prolonged stay due to concerns for possible initial alcohol withdrawal versus anesthesia recovery, was initially notably intoxicated] 05/22: Afebrile. Having some pain in her left elbow and left femur well contro lled. Sodium returned 133. Some weakness. Wound was closed and awaiting cultures. Change daptomycin per ID. Final cultures to guide antibiotic therapy 05/23: A Gram stain negative. Afebrile. Having left elbow pain did not sleep well. She is strenuously requesting to go home. Advised her to await final cultures will discuss with ID. 05/24: Cultures negative. Afebrile. Having difficulty getting comfortable and she does not want to take pain medications did not sleep well. Feels she is not getting adequate nutrition. Asking if she can go home on empiric antibiotics. Requested she await final culture results. Vitals/I&O Vitals/I&O: Vital Signs Date Time Temp Pulse Resp B/P (MAP) Pulse Ox O2 Delivery O2 Flow Rate FiO2 1/9/22 11:00 98.0 88 14 149/79 (102) 95 Room Air 98.0 I & O 05/23/21 05/23/21 05/24/21 15:00 23:00 07:00 Intake Total 200 ml 240 ml Balance 200 ml 240 ml Physical Exam Physical Exam: GENERAL: Alert, oriented female, not in distress. VITAL SIGNS: Stable, afebrile. HEENT: Both pupils are round and reacting. No conjunctival lesion, no lesion in the mouth. NECK: Supple, no JVP, no lymphadenopathy. LUNGS: Clear. HEART: S1, S2, regular. ABDOMEN: Soft, nontender, no organomegaly. EXTREMITIES: No edema, cyanosis. SKIN: Unremarkable. Post-surgical dressing with a wound VAC on the elbow, not removed. NEUROLOGIC: The patient is alert, awake, and appropriate. No focal neurologic deficit. General: Alert, Oriented X3, Cooperative, mild distress Lungs: Clear Abdomen: Normal bowel sounds, Soft, No tenderness, No hepatosplenomegaly, No masses Extremities: No clubbing, No cyanosis, No edema, Normal pulses, Other (left elbow compressive wrap) Skin: Other (left elbow compressive wrap) Labs Labs: Laboratory Tests Test 05/24/21 08:00 White Blood Count 4.7 x10^3/uL (4.0-11.0) Red Blood Count 3.87 x10^6/uL (3.50-5.40) Hemoglobin 11.4 g/dL (12.0-15.5) Hematocrit 34.9 % (36.0-47.0) Mean Corpuscular Volume 90 fL (79-100) Mean Corpuscular Hemoglobin 30 pg (25-35) Mean Corpuscular Hemoglobin Concent 33 g/dL (31-37) Red Cell Distribution Width 13.8 % (11.5-14.5) Platelet Count 546 x10^3/uL (140-400) Sodium Level 132 mmol/L (136-145) Potassium Level 4.3 mmol/L (3.5-5.1) Chloride Level 96 mmol/L (98-107) Carbon Dioxide Level 26 mmol/L (21-32) Anion Gap 10 (6-14) Blood Urea Nitrogen 5 mg/dL (7-20) Creatinine 0.3 mg/dL (0.6-1.0) Estimated GFR (Cockcroft-Gault) 224.7 Glucose Level 87 mg/dL (70-99) Calcium Level 9.0 mg/dL (8.5-10.1) Comment Review of Relevant I have reviewed the following items guy (where applicable) has been applied. Justifications for Admission Other Justification MARCEL KNAPP MD May 24, 2021 13:42
[2021-05-24] MEDS: NORMAL SALINE IV SCH (14:38)
[2021-05-24] MEDS: DAPTOMYCIN IV SCH (14:38)
[2021-05-24] MEDS: ENOXAPARIN 40 MG/0.4 ML SYRINGE. SQ SCH (14:39)
[2021-05-24 15:00] VITALS: BP 132/68
--- NOTE | 2021-05-24 17:04 | PN ---
DATE: 05/23/2021 The patient is in very good spirits today. Pain is very much under control at this point. The dressings are intact. Distal neurovascular status is fully intact. Her pain is well controlled. At this point, she is asking to go home as soon as possible, which orthopedically, she is very stable for discharge; however, she will need to be cleared by Medicine before going home at this point. No other issues, problems or concerns at this point. She is being orthopedically stable. We will be glad to see her outpatient in the next 5-7 days, sooner if there are any questions, problems or concerns of any kind. ANA CRISTINA DR: Byron TID: [id number]
[2021-05-24 19:25] VITALS: BP 145/68
[2021-05-24 23:24] VITALS: BP 142/82
[2021-05-25 03:25] VITALS: BP 142/82
[2021-05-25] MEDS: POLYETHYLENE GLYCOL 3350 17 GM PACKET. PO SCH (07:12)
[2021-05-25 07:15] VITALS: BP 152/85
[2021-05-25] MEDS: LACTOBACILLUS RHAMNOSUS GG 1 CAPSULE. PO SCH (08:17)
[2021-05-25] MEDS: CEFEPIME HCL IV Push 1 GM VIAL. IVP SCH (08:17)
[2021-05-25] MEDS: CHOLECALCIFEROL (VITAMIN D3) 5,000 UNIT CAPSULE PO SCH (08:17)
[2021-05-25] MEDS: MULTIVITAMIN with MINERAL TABLET. PO SCH (08:17)
[2021-05-25] MEDS: THIAMINE 100 MG TABLET. PO SCH (08:17)
[2021-05-25] MEDS: FERROUS SULFATE 325 MG TABLET. PO SCH (08:17)
--- NOTE | 2021-05-25 08:22 | PDOC ---
Infectious Disease Note Subjective Subjective Patient is feeling good ready to go home ROS ROS No nausea vomiting diarrhea chest pain shortness of breath Vital Sign Vital Signs Vital Signs Date Time Temp Pulse Resp B/P (MAP) Pulse Ox O2 Delivery O2 Flow Rate FiO2 05/25/21 07:15 98.6 77 16 152/85 (107) 95 Room Air 98.6 Physical Exam PHYSICAL EXAM GENERAL: Alert, oriented female, not in distress. VITAL SIGNS: Stable, afebrile. HEENT: Both pupils are round and reacting. No conjunctival lesion, no lesion in the mouth. NECK: Supple, no JVP, no lymphadenopathy. LUNGS: Clear. HEART: S1, S2, regular. ABDOMEN: Soft, nontender, no organomegaly. EXTREMITIES: No edema, cyanosis. SKIN: Unremarkable. Post-surgical dressing with a wound VAC on the elbow, not removed. NEUROLOGIC: The patient is alert, awake, and appropriate. No focal neurologic deficit. Labs Micro GRAM STAIN Final Final GRAM POS COCCI CLUSTERS:FEW SQUAMOUS EPI CELL:RARE PMN (WBCs):RARE Unless otherwise specified, Testing Performed by: [address] [address] For Inquires, the Physician may contact the Microbiology department at [phone] ANAEROBIC-AEROBIC CULTURE Preliminary Preliminary No Growth on 05/22/21 at 0923 No Growth on 05/23/21 at 1100 Unless otherwise specified, Testing Performed by: [address] [address] For Inquires, the Physician may contact the Microbiology department at [phone] Objective Assessment IMPRESSION: 1. Left elbow fracture, status post ORIF on 05/05, subsequent wound dehiscence with exposed hardware, ORIF again done on 21 of May. 2. Status post fall with a left hip fracture ORIF on April 18. 3. Alcoholism then, but she says she has not had any alcohol since first surgery. 4. Hypertension. 5. Chronic obstructive pulmonary disease. 6. Tobaccoism. 7. Malnutrition. Plan Plan of Care cont antibiotics cont supportive care culture neg so far Patient can be discharged home on IV daptomycin and Invanz Follow-up with me in 2 weeks Interagency form filled out Plan is to give 6 weeks of IV and then minimum 6 weeks of oral before possible hardware removal Discussed with SHADE August MD May 25, 2021 08:22
--- NOTE | 2021-05-25 08:39 | PDOC ---
ORTHO PROGRESS NOTES DATE: 05/25/21 TIME: 08:38 Subjective Patient is looking forward to going home, her biggest complaint this morning is back pain and an uncomfortable bed. Overall her pain is tolerable. No new complaints. Vitals Vital Signs Date Time Temp Pulse Resp B/P (MAP) Pulse Ox O2 Delivery O2 Flow Rate FiO2 05/25/21 07:15 98.6 77 16 152/85 (107) 95 Room Air 98.6 Labs Laboratory Tests Test 05/24/21 08:00 White Blood Count 4.7 x10^3/uL (4.0-11.0) Red Blood Count 3.87 x10^6/uL (3.50-5.40) Hemoglobin 11.4 g/dL (12.0-15.5) Hematocrit 34.9 % (36.0-47.0) Mean Corpuscular Volume 90 fL (79-100) Mean Corpuscular Hemoglobin 30 pg (25-35) Mean Corpuscular Hemoglobin Concent 33 g/dL (31-37) Red Cell Distribution Width 13.8 % (11.5-14.5) Platelet Count 546 x10^3/uL (140-400) Sodium Level 132 mmol/L (136-145) Potassium Level 4.3 mmol/L (3.5-5.1) Chloride Level 96 mmol/L (98-107) Carbon Dioxide Level 26 mmol/L (21-32) Anion Gap 10 (6-14) Blood Urea Nitrogen 5 mg/dL (7-20) Creatinine 0.3 mg/dL (0.6-1.0) Estimated GFR (Cockcroft-Gault) 224.7 Glucose Level 87 mg/dL (70-99) Calcium Level 9.0 mg/dL (8.5-10.1) Notes Cultures show no growth, gram-positive cocci in clusters on gram stain She is awake and alert in bed. Dressing is intact. Normal motor and sensation are present in her left upper extremity Assessment and Plan I discussed her care with infectious disease today. Hopefully we can get a PICC line placed today and discharged today on home antibiotics. JUMANA TEE II, MD May 25, 2021 08:39
[2021-05-25] MEDS: oxyCODONE IR 5 MG TABLET PO PRN (10:12)
[2021-05-25 11:07] VITALS: BP 150/82
--- NOTE | 2021-05-25 11:32 | SNU/HH DC ---
DISCHARGE WITH HOME HEALTH DISCHARGE INFORMATION: Condition on Discharge: Stable CODE STATUS: Code Status: Full HOME HEALTH: Face to Face: I certify this patient is under my care and that I, or a nurse practitioner or physician's assistant professor in family studies working with me, had a face to face encounter that meets the physician face to face encounter requirements with this patient on []. Medical Complications: Other (Left elbow infection/fracture status post ORIF) Care Home For: Assess & Educate Safety RN For Eval/Treatment: Yes Physical Therapy For: Evalulation/Treatment Occupational Therapy For: Evaluation/Treatment Home Health Aide For: Self-care SUBMARINE CABLE EQUIPMENT TECHNICIAN For: Community Resources Pt Meets Homebound Status: Poor coordination w/ amb. POST DISCHARGE ORDERS: Activity Instructions for Disc: Resume previous activity, Other, see below Weight Bearing Status after Di: As tolerated, Touch down weight bearing Bathing Instructions: Shower-keep dressing dry DIET AFTER DISCHARGE: Regular Wound/Incision Care: Ice to area for comfort, Keep wound/cast CDI DC TO SNF OTHER: Okay to use left upper extremity for light ADLs CHECKS AFTER DISCHARGE: Checks after discharge: Check blood press - daily, Check your Temp as needed FOLLOW-UP: Additional Instructions: Home IV daptomycin and IV Invanz per infectious disease instructions Routine PICC care TREATMENT/EQUIPMENT ORDERS: Adaptive Equipment Issued: None, Walker CERTIFICATION STATEMENT: Certification Statement: Certification Statement: Based on the above finding, I certify that this patient is confined to the home and needs intermittent long term care, physical therapy and/or speech therapy, or continues to need occupational therapy.~ This patient is under my care, and I have initiated the establishment of the plan of care.~ This patient will be followed by myself or a community physician who will periodically review the plan of care. Home Meds Active Scripts Thiamine Mononitrate (VITAMIN B-1) 100 Mg Tablet, 100 MG PO DAILY for deficiency for 60 Days, #60 TAB Prov:MARCEL SOW MD 04/27/21 Ferrous Sulfate (FEOSOL) 325 Mg Tablet, 325 MG PO DAILYWBKFT for glendy for 60 Days, #60 TAB Prov:MARCEL SOW MD 04/27/21 Reported Medications Cholecalciferol (Vitamin D3) (Vitamin D3 ) 125 Mcg Capsule, 125 MCG PO DAILY for SUPPLEMENT, CAP 5,000 UNITS = 125 MCG 12/20/21 Albuterol Sulfate (ALBUTEROL SULFATE NEB SOLN) 2.5 Mg/3 Ml Vial.neb, 2.5 MG NEB QID for COPD, EACH 0 Refills 05/04/21 Oxycodone Hcl (OXYCODONE HCL) 5 Mg Capsule, 5 MG PO PRN Q6HRS PRN for PAIN, TAB 0 Refills 05/04/21 ASHLY RUBIO III DO May 25, 2021 11:32
--- NOTE | 2021-05-25 13:06 | PDOC ---
[facility] PROGRESS NOTE Date of Service DOS: DATE: 05/25/21 TIME: 13:06 Chief Complaint Chief Complaint A/P: Left elbow wound - s/p I&D and wound vac placement. Cultures intraoperatively. ID consulted for antibiotics Left subtrochanteric femur fracture - mid femur fracture s/p 04/18/2021 correction Nondisplaced left olecranon fracture - s/p plate 05/05/2021, still in place Weaknesss, debilty, frail EtOH abuse disorder Malnutrition, BMI 16 Hyponatremia - likely nutritional, calorie counting, nutritional supplements. FEN - regular diet PPX - lovenox FULL CODE Dispo - inpatient History of Present Illness History of Present Illness 05/25/2021 Patient seen and examined Discussed with RN Chart reviewed We hope to discharge this afternoon if she is doing better is a 65yo female with PMHx ETOH use disorder and recent left hip fracture corrected 04/18/2021 who also had non-displaced left olecranon fracture s/p ORIF with plate on 04/16/2021 who returns to the hospital for surgical debridement of left elbow after wound dehiscence while in rehab. She went to the OR for I&D of left elbow with irrigation cultures obtained intraoperatively and wound VAC placed hardware remains in place. Seen in PACU says her pain is reasonably controlled she is worried about eating as she is left-handed. [Previously she was treated for left subtrochanteric femur fracture with nelson and unfortunately had a proximal fracture displacement, had prolonged stay due to concerns for possible initial alcohol withdrawal versus anesthesia recovery, was initially notably intoxicated] 05/22: Afebrile. Having some pain in her left elbow and left femur well con trolled. Sodium returned 133. Some weakness. Wound was closed and awaiting cultures. Change daptomycin per ID. Final cultures to guide antibiotic therapy 05/23: A Gram stain negative. Afebrile. Having left elbow pain did not sleep well. She is strenuously requesting to go home. Advised her to await final cultures will discuss with ID. 05/24: Cultures negative. Afebrile. Having difficulty getting comfortable and she does not want to take pain medications did not sleep well. Feels she is not getting adequate nutrition. Asking if she can go home on empiric antibiotics. Requested she await final culture results. Vitals/I&O Vitals/I&O: Vital Signs Date Time Temp Pulse Resp B/P (MAP) Pulse Ox O2 Delivery O2 Flow Rate FiO2 05/25/21 11:07 98.5 77 18 150/82 (104) 95 Room Air 98.5 I & O 05/24/21 05/24/21 05/25/21 15:00 23:00 07:00 Intake Total 480 ml Balance 480 ml Physical Exam Physical Exam: GENERAL: Alert, oriented female, not in distress. VITAL SIGNS: Stable, afebrile. HEENT: Both pupils are round and reacting. No conjunctival lesion, no lesion in the mouth. NECK: Supple, no JVP, no lymphadenopathy. LUNGS: Clear. HEART: S1, S2, regular. ABDOMEN: Soft, nontender, no organomegaly. EXTREMITIES: No edema, cyanosis. SKIN: Unremarkable. Post-surgical dressing with a wound VAC on the elbow, not removed. NEUROLOGIC: The patient is alert, awake, and appropriate. No focal neurologic deficit. General: Alert, Oriented X3, Cooperative, mild distress Lungs: Clear Abdomen: Normal bowel sounds, Soft, No tenderness, No hepatosplenomegaly, No masses Extremities: No clubbing, No cyanosis, No edema, Normal pulses, Other (left elbow compressive wrap) Skin: Other (left elbow compressive wrap) Assessment and Plan Assessmemt and Plan If tolerates diet discharge please see dictation Comment Review of Relevant I have reviewed the following items guy (where applicable) has been applied. Justifications for Admission Other Justification ASHLY RUBIO III DO May 25, 2021 13:06
[2021-05-25] MEDS: ENOXAPARIN 40 MG/0.4 ML SYRINGE. SQ SCH (14:00)
[2021-05-25] MEDS: DAPTOMYCIN IV SCH (14:24)
[2021-05-25] MEDS: NORMAL SALINE IV SCH (14:24)
[2021-05-25] MEDS ORDERED: LIDOCAINE WITH 8.4% SOD BICARB 3 ML DISP.SYRIN. ONE (14:55)
[2021-05-25 15:20] VITALS: BP 123/67
[2021-05-25] MEDS ORDERED: LIDOCAINE WITH 8.4% SOD BICARB 3 ML DISP.SYRIN. INJ ONE (16:30)
--- NOTE | 2021-05-25 16:42 | NUR ---
pt to IR for PICC placement prior to discharge home. PICC placed to R upper arm by Dr Palma, tolerated without difficulty. FRAN RN
--- NOTE | 2021-05-25 16:56 | RAD ---
EXAMINATION: Ultrasound and Fluoroscopic guided PICC line placement. (CPT 15902, 48852, 97204) INDICATION: Poor IV access, patient needs IV antibiotics.. CONSENT: Informed consent was obtained. The risks, benefits, potential complications and alternatives were reviewed and all questions answered. SEDATION: No sedation Flouroscopy-Radiation exposure: Kerma Air Product (in mGycm2): 1 PROCEDURE: After maximal sterile barrier technique preparation and draping, 1% lidocaine was utilized for local anesthesia. Initial ultrasound examination demonstrated right cephalic. The vein is deemed appropriate for access in right arm . Access into the right cephalic vein was obtained with a 21-gauge needle was live ultrasound guidance. A 0.018 wire is introduced and advanced into the SVC without difficulty. Subsequently, a 5 [place]i pe el-away sheath is introduced. The measurement performed from the skin site to the cavoatrial junction , and the PICC catheter was trimmed to the appropriate length. The double lumen 5 [place]i PICC line w as advanced through the peel-away sheath and the PICC line tip was confirmed to be at the distal SVC. Consequently the peel-away sheath was removed and the PICC line was fully advanced into the cavoatri al junction. Good blood return is seen with both the side ports flushed with saline. The patient tolerated the procedure well with no immediate complications. FINDINGS: Patent right cephalic vein. IMPRESSION: Double lumen 5 [place]i PICC line placed through the right cephalic vein with the tip at t he cavoatrial junction. The catheter is ready for immediate use. Electronically signed by: Mandeep Palma MD (05/25/2021 4:54 PM) [id number]
--- NOTE | 2021-05-25 18:22 | NUR ---
Patient discharged home with home health. Patient verbalized understanding of discharge instructions. Patient given information for Dr. Rosado and Dr. Plummer for follow up.
--- NOTE | 2021-05-26 14:29 | DS ---
DATE OF DISCHARGE: 05/25/2021 ADMISSION DIAGNOSIS: Left elbow infection. DISCHARGE DIAGNOSES: Resolving left elbow infection with status post irrigation and debridement down to the bone, history of a hip fracture, recent olecranon fracture with status post open reduction internal fixation on 05/05, history of alcohol, chronic obstructive pulmonary disease, hypertension, tonsillectomy, adenoidectomy, hysterectomy, breast surgery. HOSPITAL COURSE: The patient is a pleasant 65-year-old female who had a recent history of a fall and underwent a surgical correction of her elbow fracture. Postprocedure, she has now developed a wound dehiscence and infection. She was admitted. We consulted Infectious Disease and Orthopedics. She was taken for irrigation, debridement and excisional debridement as well. Postoperatively, she did well. We discharged to home on home IV antibiotics. DISPOSITION: To home. ACTIVITY: As tolerated. DIET: Low sodium. DISCHARGE MEDICATIONS: Please see the MRAD. Albuterol, vitamin D, iron, oxycodone and IV daptomycin and IV Invanz per Infectious Disease. TOTAL TIME: [address]: Chica TID: [id number]
== END 2021-05-25 19:18 | disposition home health service (06) | DRG 908 ==
LOC: SURG 06:03 → 4 NORTH 07:34
PROVIDERS: ADMIT Internal Medicine; ATTEND Orthopaedic Surgery Sports Medicine
PROC: 0PBJ0ZZ Excision of Left Radius, Open Approach (ICD-10-PCS; principal; 2021-05-21 07:30)
PROC: 02HV33Z Insertion of Infusion Device into Superior Vena Cava, Percutaneous Approach (ICD-10-PCS; 2021-05-25)
PROC: B5181ZA Fluoroscopy of Superior Vena Cava using Low Osmolar Contrast, Guidance (ICD-10-PCS; 2021-05-25)
PROC: B548ZZA Ultrasonography of Superior Vena Cava, Guidance (ICD-10-PCS; 2021-05-25)
DX: T81.30XA Disruption of wound, unspecified, initial encounter (principal); M00.9 Pyogenic arthritis, unspecified; E46 Unspecified protein-calorie malnutrition; Z68.1 Body mass index [BMI] 19.9 or less, adult; F10.20 Alcohol dependence, uncomplicated; F17.200 Nicotine dependence, unspecified, uncomplicated; I10 Essential (primary) hypertension; J44.9 Chronic obstructive pulmonary disease, unspecified; Z90.710 Acquired absence of both cervix and uterus
CPT/HCPCS: 36415; 36573; 80048; 80053; 80202; 85027; 87071; 87075; A4930; A6213; A6450; C1751; C1892; J0692; J0780; J0878; J1100; J1650; J2250; J2270; J2405; J2710; J3010; J3370; J3490; J7050; G0378; J7030